=== PATIENT | female | born 1995 | race Caucasian/White ===

== ENCOUNTER 2018-07-15 21:38 | Emergency (ER) | payer OTHER ==
[2018-07-15 21:44] VITALS: BP 131/83
[2018-07-15 22:19] LABS: BILIRUBIN,URINE NEGATIVE (NEGATIVE); GLUCOSE, URINE (UA) NEGATIVE (NEGATIVE); KETONES,URINE (UA) TRACE mg/dL (NEGATIVE); LEUKOCYTE ESTERASE, URINE MODERATE (NEGATIVE); NITRITE,URINE POSITIVE (NEGATIVE); OCCULT BLOOD,URINE MODERATE (NEGATIVE); PROTEIN,URINE 100 mg/dL (NEGATIVE); UROBILINOGEN,URINE 0.2 (NORMAL) E.U./dL (NORMAL)
[2018-07-15 22:22] LABS: CLARITY,URINE CLOUDY (CLEAR)
[2018-07-15 22:23] LABS: BACTERIA,URINE Rare /HPF (None Seen); RBC,URINE 0-5 /HPF (0-5); SQUAMOUS EPITHELIAL CELL,UR NONE SEEN (<= Few)
[2018-07-15] MEDS ORDERED: SULFAMETH/TRIMETH DS 800/160 MG TABLET PO STA (22:52)
[2018-07-15] MEDS ORDERED: PHENAZOPYRIDINE 100 MG TABLET PO STA (22:52)
--- NOTE | 2018-07-15 22:55 | ED Physician Documentation ---
PD HPI FEMALE - Stated complaint Stated Complaint: FEM - Chief complaint Chief Complaint: UTI - History obtained from History obtained from: Patient - History of Present Illness Timing - onset: Other (4 days of urinary burning, frequency and dysuria with suprapubic and low back pain. She has had chills but no fever or flank pain.) Review of Systems Constitutional: reports: Chills. denies: Fever Respiratory: denies: Dyspnea, Cough GI: reports: Abdominal Pain. denies: Nausea, Vomiting, Constipation, Diarrhea PD PAST MEDICAL HISTORY - Past Medical History Past Medical History: No - Present Medications Home Medications: Ambulatory Orders Medication Instructions Recorded Confirmed Phenazopyridine HCl [Pyridium] 200 mg PO TID PRN #6 tablet 07/15/18 Sulfamethoxazole/Trimethoprim 1 each PO BID #10 tablet 07/15/18 [Sulfamethoxazole-Tmp Ds Tablet] - Social History Does the pt have substance abuse?: No - Family History Family history: reports: Non contributory PD ED PE NORMAL - Vitals Vital signs reviewed: Yes - General General: Alert and oriented X 3, No acute distress - Abdomen Abdomen: Soft, Non tender - Back Back: No spinal TTP - Neuro Neuro: Alert and oriented X 3, Normal speech - Psych Psych: Normal mood, Normal affect Results - Vitals Vitals: Vital Signs - 24 hr 07/15/18 21:41 Temperature 36.6 C Heart Rate 95 Respiratory 20 Rate Blood Pressure 131/83 H O2 Saturation 98 Oxygen O2 Source Room air - Labs Labs: Laboratory Tests 07/15/18 21:44 Urine Color YELLOW Urine Clarity CLOUDY Urine pH 6.0 Ur Specific [place] 1.015 Urine Protein 100 H Urine Glucose (UA) NEGATIVE Urine Ketones TRACE Urine Occult Blood MODERATE H Urine Nitrite POSITIVE H Urine Bilirubin NEGATIVE Urine Urobilinogen 0.2 (NORMAL) Ur Leukocyte Esterase MODERATE H Urine RBC 0-5 Urine WBC >25 H Ur Squamous Epith Cells NONE SEEN Urine Bacteria Rare Ur Microscopic Review INDICATED Urine Culture Comments INDICATED Departure - Departure Disposition: 01 Home, Self Care Clinical Impression: Cystitis Condition: Good Record reviewed to determine appropriate education?: Yes Instructions: ED UTI Cystitis Female Prescriptions: Phenazopyridine HCl [Pyridium] 200 mg PO TID PRN #6 tablet PRN Reason: dysuria Sulfamethoxazole/Trimethoprim [Sulfamethoxazole-Tmp Ds Tablet] 1 each PO BID #10 tablet Comments: We will culture your urine, the results should be done in 48-72 hours. If an antibiotic change is necessary we will call you. Return if worse in the meantime, especially if you develop increasing flank pain, fevers, or cannot keep down the medication.
== END 2018-07-15 23:10 | disposition home or self-care (01) ==
LOC: ED 21:38
DX: N30.90 Cystitis, unspecified without hematuria (principal)
CPT/HCPCS: 81001; 87086; 87181; 99283; A9270; 81003